=== PATIENT | female | born 1975 | race Caucasian/White ===

== ENCOUNTER 2016-04-27 16:54 | Emergency (ER) | payer MEDICAID ==
[~2016-04-27] VITALS: Ht 162.6 cm; Wt 84.0 kg
[~2016-04-27 16:54] MED LIST: ACET325T33 PO; FAMO-18 PO; NITR-58 PO; ONDA4TAB35 PO
[2016-04-27 17:18] VITALS: Ht 162.6 cm; Wt 84.0 kg
[2016-04-27] MEDS ORDERED: ONDANSETRON (ODT) 4 MG TAB ODT STA (22:08)
--- NOTE | 2016-04-27 22:12 | ERD ---
ER Documentation Chief Complaint Date/Time DATE: 04/27/16 TIME: 22:11 Chief Complaint ABDOMINAL PAIN,VOMITING,DIARRHEA X 3DAYS HPI 40-year-old female presents here in emergency department for complaints of abdominal pain and vomiting diarrhea. 3 days. Patient is complaining of abdominal pain, generalized pain, 8/10 scale, accompanied with vomiting and diarrhea, does not have any blood in the stool or black stool. Patient does not have any blood in the vomit. Vomited 3 times today, diarrhea episodes was 3 times today. Patient denies any flank pain. Patient denies hematuria or dysuria. Patient denies any fever or chills. Patient states the pain got worse today while she came in to the hospital. Patient did not take any medications of symptoms. ROS All systems reviewed and are negative except as per history of present illness. Medications Home Meds Active Scripts Ondansetron Hcl* (Zofran* ODT) 4 mg -ODT Tab.disper, 4 MG PO Q6 Y for NAUSEA AND /OR VOMITING, #10 TAB Prov:SHERRI TAVERAS PA-C 10/30/15 Nitrofurantoin Monohyd Macrocr* (Macrobid*) 100 Mg Capsr, 100 MG PO BID for 7 Days, CAP Prov:SHERRI TAVERAS PA-C 10/30/15 Nitrofurantoin Monohyd Macrocr* (Macrobid*) 100 Mg Capsr, 100 MG PO BID for 7 Days, CAP Prov:RILEY GALARZA PA-C 08/03/15 Famotidine* (Pepcid*) 20 Mg Tablet, 20 MG PO BID for 4 Days, TAB Prov:RILEY GALARZA PA-C 08/03/15 Acetaminophen* (Tylenol*) 325 Mg Tablet, 2 TAB PO Q8 Y for PAIN AND OR ELEVATED TEMP, #20 TAB Prov:RILEY GALARZA PA-C 08/03/15 Allergies Allergies: Coded Allergies: No Known Allergy (Unverified , 08/03/15) PMhx/Soc Medical and Surgical Hx: pt denies Medical Hx, pt denies Surgical Hx History of Surgery: No Anesthesia Reaction: No Hx Neurological Disorder: No Hx Respiratory Disorders: No Hx Cardiac Disorders: No Hx Psychiatric Problems: No Hx Miscellaneous Medical Probl: No Hx Alcohol Use: No Hx Substance Use: No Hx Tobacco Use: No Smoking Status: Never smoker FmHx Family History: No coronary disease, No diabetes, No other Physical Exam Vitals Vital Signs Date Time Temp Pulse Resp B/P Pulse Ox O2 Delivery O2 Flow Rate FiO2 04/27/16 17:18 98.8 60 18 126/78 98 Physical Exam GENERAL: The patient is well developed and appropriate for usual state of health, in no apparent distress. CHEST: Clear to auscultation bilaterally. There are no rales, wheezes or rhonchi. HEART: Regular rate and rhythm. No murmurs, clicks, rubs or gallops. No S3 or S4. ABDOMEN: Soft, generalized abdominal tenderness noted. Hyperactive bowel sounds. No rebound or guarding. No gross peritonitis. No gross organomegaly or masses. No Benson sign or McBurney point tenderness. BACK: No midline or flank tenderness. EXTREMITIES: Equal pulses bilaterally. There is no peripheral clubbing, cyanosis or edema. No focal swelling or erythema. Full range of motion. Grossly neurovascularly intact. NEURO: Alert and oriented. Cranial nerves 2-12 intact. Motor strength in all 4 extremities with 5/5 strength. Sensation grossly intact. Normal speech and gait. SKIN: There is no apparent rash or petechia. The skin is warm and dry. HEMATOLOGIC AND LYMPHATIC: There is no evidence of excessive bruising or lymphedema. No gross cervical, axillary, or inguinal lymphadenopathy. Result Diagram: 04/27/16221904/27/160 Results 24 hrs Laboratory Tests Test 04/27/16 22:20 04/27/16 22:22 Alanine Aminotransferase (ALT/SGPT) 18IU/L Albumin 3.8g/dl Albumin/Globulin Ratio 1.15 Alkaline Phosphatase 98IU/L Anion Gap 16 Aspartate Amino Transf (AST/SGOT) 20IU/L Basophils # 0.010^3/ul Basophils % 0.3% Blood Urea Nitrogen 17mg/dl Calcium Level 9.1mg/dl Carbon Dioxide Level 25mmol/L Chloride Level 108mmol/L Creatinine 1.32mg/dl Direct Bilirubin 0.00mg/dl Eosinophils # 0.110^3/ul Eosinophils % 0.7% Globulin 3.30g/dl Glucose Level 95mg/dl Hematocrit 37.0% Hemoglobin 12.2g/dl Indirect Bilirubin 0.1mg/dl Lipase 115U/L Lymphocytes # 2.910^3/ul Lymphocytes % 29.2% Mean Corpuscular Hemoglobin 29.8pg Mean Corpuscular Hemoglobin Concent 33.0g/dl Mean Corpuscular Volume 90.4fl Mean Platelet Volume 9.9fl Monocytes # 0.510^3/ul Monocytes % 5.1% Neutrophils # 6.510^3/ul Neutrophils % 64.7% Nucleated Red Blood Cells # 0.010^3/ul Nucleated Red Blood Cells % 0.0/100WBC Platelet Count 43759^3/UL Potassium Level 3.7mmol/L Red Blood Count 4.1010^6/ul Red Cell Distribution Width 14.3% Sodium Level 145mmol/L Total Bilirubin 0.1mg/dl Total Protein 7.1g/dl White Blood Count 10.110^3/ul Urine Bacteria FEW Urine Bilirubin NEGATIVE Urine Clarity CLEAR Urine Color LT. YELLOW Urine Glucose NEGATIVE% Urine Hemoglobin 3+ Urine Ketones NEGATIVE Urine Leukocyte Esterase NEGATIVE Urine Microscopic RBC 25-50/HPF Urine Microscopic WBC 2-5/HPF Urine Mucus FEW Urine Nitrite NEGATIVE Urine Specific [place] >=1.030 Urine Squamous Epithelial Cells FEW Urine Total Protein 4+ Urine Urobilinogen 0.2 E.U./dL Urine pH 6.0 Current Medications Medications (Trade) Dose Ordered Sig/Kathleen Route PRN Reason Start Time Stop Time Status Last Admin Dose Admin Ondansetron HCl (Zofran Odt) 4 mg ONCE STAT ODT 04/27/16 22:08 04/27/16 22:10 DC 04/27/16 22:23 Patient was given Zofran here in the emergency department. After treatment, patient was able to tolerate po fluids here in the emergency department without any vomiting. There is no signs and symptoms of dehydration. PROCEDURE: CT ABDOMEN/PELVIS WITHOUT CONTRAST CLINICAL INDICATION: 40-year-old female with abdominal pain, vomiting and diarrhea. TECHNIQUE: The study was performed utilizing a [employer] VCT 64-slice CT scanner. Direct axial sections were obtained through the abdomen and pelvis without the use of intravenous contrast material. Sagittal and coronal reformations were obtained. Automated exposure control and iterative reconstruction techniques were utilized for this examination. The images were reviewed on a PACS workstation. CTD/vol = 14 point a mGy; Total Exam DLP = 782.3 mGy-cm. COMPARISON: CT abdomen/pelvis October 30, 2015. FINDINGS: The lung bases are unremarkable. There is no evidence for significant pleural effusion. The liver has a normal size and contour without focal areas of abnormal density. No intrahepatic nor extrahepatic biliary ductal dilatation is seen. The gallbladder demonstrates no wall thickening nor pericholecystic fluid. No biliary stones are evident. The pancreas is without areas of abnormal attenuation. The spleen is identified and has a normal size without abnormal density. The adrenal glands are unremarkable. The right kidney is without abnormal density, calculi or obstruction. There is a punctate nonobstructing left upper pole renal jarrell calculus. There is no evidence for hydroureteronephrosis. The urinary bladder contains a small volume of urine. There is mild retained stool within the ascending and transverse colon without obstruction. The appendix is visualized and is without abnormal thickening or surrounding inflammatory reaction. The uterus is retroflexed. There is no significant free fluid. Multiple small phleboliths are seen within the left hemipelvis. There are diffuse shotty mesenteric lymph nodes. The aortoiliac vessels are without aneurysmal dilatation. The osseous structures are intact. IMPRESSION: 1. Punctate nonobstructing left upper pole renal calculus. 2. Mild retained stool. 3. No CT evidence for appendicitis. 4. Shotty mesenteric lymph nodes. .Macho Leon MD, MD Date Time Electronically viewed and signed by .Macho Leon MD, MD on 04/27/2016 23:58 .M/ CC: LISA CABELLO [employer] Procedures/MDM Medical Decision Making: She symptoms most likely consistent with viral gastroenteritis. No symptoms of dehydration at this time. No electrolytic imbalance noted. There was an incidental finding of kidney stones noted in the CT scan abdomen and pelvis. There is low suspicion for abdominal emergencies at this time. Patients abdominal exam is normal at this time. Patients radiology exam does not show any abdominal emergencies at this time. There is low suspicion for appendicitis, cholecystitis, abdominal aortic aneurysms or peritonitis at this time. There is low suspicion for sepsis. Patient appears well and is hemodynamically stable. Disposition: Home. Condition: Stable Prescription Bentyl, Zofran, tramadol Instructions: Patient is advised to take medications as prescribed. Patient is advised to rest, increase fluid intake and do brat diet for next 1-2 days and progress as tolerated. Patient is advised that if symptoms are worse, severe abdominal pain, uncontrolled vomiting, high fever, severe flank pain, worst signs and symptoms, to return to the emergency department immediately. Otherwise, patient can follow up with primary care doctor in 5-7 days. Departure Diagnosis: Primary Impression: Viral gastroenteritis Additional Impression: Kidney stone Condition: Stable Patient Instructions: Gastroenteritis, Viral (6Y-Adult), Kidney Stone, Undescended (No Symptoms) Additional Instructions: Patient is advised to take medications as prescribed. Patient is advised to rest , increase fluid intake and do brat diet for next 1-2 days and progress as tolerated. Patient is advised that if symptoms are worse, severe abdominal pain , uncontrolled vomiting, high fever, severe flank pain, worst signs and symptoms , to return to the emergency department immediately. Otherwise, patient can follow up with primary care doctor in 5-7 days. LISA CABELLO NP Apr 27, 2016 22:12
[2016-04-27 22:51] LABS: BASOPHILS % 0.3 % (0.0-2.0); CONDITION 1; EOSINOPHILS # 0.1 10^3/ul (0.0-0.5); EOSINOPHILS % 0.7 % (0.0-7.0); HEMOGLOBIN 12.2 g/dl (12.0-16.0); LYMPHOCYTES # 2.9 10^3/ul (0.8-2.9); LYMPHOCYTES % 29.2 % (15.0-51.0); MEAN CORPUSCULAR HEMOGLOBIN 29.8 pg (29.0-33.0); MEAN CORPUSCULAR VOLUME 90.4 fl (82.0-101.0); MEAN PLATELET VOLUME 9.9 fl (7.4-10.4); MONOCYTE # 0.5 10^3/ul (0.3-0.9); MONOCYTES % 5.1 % (0.0-11.0); NEUTROPHIL # 6.5 10^3/ul (1.6-7.5); NEUTROPHILS % 64.7 % (39.0-77.0); PLATELET COUNT 249 10^3/UL (140-440); RED CELL DISTRIBUTION WIDTH 14.3 % (11.5-14.5); UNCORRECTED WBC 10.1 10^3/ul (4.8-10.8); WHITE BLOOD COUNT 10.1 10^3/ul (4.8-10.8)
[2016-04-27 22:55] LABS: ALBUMIN 3.8 g/dl (3.3-4.9)
[2016-04-27 22:56] LABS: POTASSIUM 3.7 mmol/L (3.5-5.1)
[2016-04-27 22:58] LABS: ALBUMIN/GLOBULIN RATIO 1.15; BILIRUBIN,INDIRECT 0.1 mg/dl (0-1.1); BILIRUBIN,TOTAL 0.1 mg/dl (0.2-1.3); CREATININE 1.32 mg/dl (0.44-1.00); TOTAL PROTEIN 7.1 g/dl (6.1-8.1)
[2016-04-27 22:59] LABS: CALCIUM 9.1 mg/dl (8.4-10.2)
[2016-04-27 23:08] LABS: ADD UMIC YES; URINE BILIRUBIN (Dip) NEGATIVE (NEGATIVE); URINE BLOOD (Dip) 3+ (NEGATIVE); URINE COLOR LT. YELLOW (YELLOW); URINE GLUCOSE (Dip) NEGATIVE (NEGATIVE); URINE KETONES (Dip) NEGATIVE (NEGATIVE); URINE LEUKOCYTE ESTERASE (Dip) NEGATIVE (NEGATIVE); URINE NITRITE (Dip) NEGATIVE (NEGATIVE); URINE TOTAL PROTEIN (Dip) 4+ (NEGATIVE); URINE UROBILINOGEN (Dip) 0.2 E.U./dL (0.1-1.0)
[2016-04-27 23:33] LABS: URINE RBCS 25-50 /HPF (0)
[2016-04-27 23:34] LABS: BACTERIA,URINE FEW; MUCUS,URINE FEW; SQUAMOUS EPITHELIAL CELL,UR FEW
--- NOTE | 2016-04-27 23:58 | RADRPT ---
PROCEDURE: CT ABDOMEN/PELVIS WITHOUT CONTRAST CLINICAL INDICATION: 40-year-old female with abdominal pain, vomiting and diarrhea. TECHNIQUE: The study was performed utilizing a [employer] VCT 64-slice CT scanner. Direct axia l sections were obtained through the abdomen and pelvis without the use of intravenous contrast mate rial. Sagittal and coronal reformations were obtained. Automated exposure control and iterative obed nstruction techniques were utilized for this examination. The images were reviewed on a PACS workst at[employer]. CTD/vol = 14 point a mGy; Total Exam DLP = 782.3 mGy-cm. COMPARISON: CT abdomen/pelvis October 30, 2015. FINDINGS: The lung bases are unremarkable. There is no evidence for significant pleural effusion. The liver has a normal size and contour without focal areas of abnormal density. No intrahepatic nor extrahepa tic biliary ductal dilatation is seen. The gallbladder demonstrates no wall thickening nor perichole cystic fluid. No biliary stones are evident. The pancreas is without areas of abnormal attenuation. The spleen is identified and has a normal size without abnormal density. The adrenal glands are unr emarkable. The right kidney is without abnormal density, calculi or obstruction. There is a punctat e nonobstructing left upper pole renal jarrell calculus. There is no evidence for hydroureteronephros is. The urinary bladder contains a small volume of urine. There is mild retained stool within the as cending and transverse colon without obstruction. The appendix is visualized and is without abnormal thickening or surrounding inflammatory reaction. The uterus is retroflexed. There is no significant free fluid. Multiple small phleboliths are seen within the left hemipelvis. There are d iffuse shotty mesenteric lymph nodes. The aortoiliac vessels are without aneurysmal dilatation. The osseous structures are intact. IMPRESSION: 1. Punctate nonobstructing left upper pole renal calculus. 2. Mild retained stool. 3. No CT evidence for appendicitis. 4. Shotty mesenteric lymph nodes. .Macho Leon MD, Date Time Electronically viewed and signed by .Macho Leon MD, on 04/27/2016 23:58 .M/
[2016-04-28] MEDS ORDERED: DICY10CA60 PO (00:42)
[2016-04-28] MEDS ORDERED: TRAM50TA2 PO (00:42)
[2016-04-28] MEDS ORDERED: ONDA4TAB14 PO (00:42)
[2016-04-28 01:04] VITALS: BP 112/85; PULSE 72; RESP 20; TEMP 98.7
== END 2016-04-28 01:03 | disposition home or self-care (01) ==
LOC: FTE 16:54
DX: A08.4 Viral intestinal infection, unspecified (principal); N20.0 Calculus of kidney; R11.10 Vomiting, unspecified
CPT/HCPCS: 36415; 74176; 80053; 81001; 83690; 85025; Z7502; Z7610; 81003

== ENCOUNTER 2017-10-16 18:20 | Emergency (ER) | END 2017-10-16 21:21 | disposition home or self-care (01) ==